=== PATIENT | male | born 1955 | race Caucasian/White ===

== ENCOUNTER 2024-02-05 19:14 | Observation (INO) ==
--- NOTE | 2024-02-05 19:43 | Emergency Department Note ---
Impression & Plan Asymptomatic hypertensive urgency, Elevated troponin ED Provider Note NAME: ELADIO FAROOQ AGE: 68 SEX: M : 1955 ARRIVES VIA: Walk-In INFORMANT: Patient, ED PROVIDER(S): Jason Jorgensen MD CHIEF COMPLAINT: High blood pressure MEDICAL DECISION MAKING: Patient presents due to concern for high blood pressure. IV was established and blood work was obtained. Patient EKG shows elevation in V2 but not in V3. The patient has no active chest pain. Patient with a white count that is normal with a normal H&H and platelet count. Kidney function is unremarkable. Troponin of 22. In light of this with abnormal EKG without prior comparison do believe the patient would benefit from inpatient treatment. Patient was ordered 1 nitro for blood pressure control. Patient also ordered full dose aspirin. Repeat blood pressure does appear to be improved. Patient still without any chest pain or shortness of breath. I did speak with the on-call hospitalist service Dr. Barrett and the patient was admitted to the medicine service. Discussion w/ other healthcare providers: Dr. Barrett inpatient medicine service Prior /Outside records reviewed: None Differential diagnosis: Benign hypertension, hypertensive emergency, hypertensive emergency/urgency, salt intake, pheochromocytoma, electrolyte abnormality, renal disease as well as other etiologies were entertained. Diagnostics, as interpreted by me: ECG: Sinus with first-degree AV block, rate of 62, prolonged IL normal QRS duration, normal axis, elevation in V2 without elevation in V3. No obvious reciprocal changes. Cardiac monitoring: An order was placed for continuous cardiac monitoring. The monitor shows a rate of 65 with sinus rhythm. Patient was placed on pulse oximetry Medical decision rules: Heart score Imaging studies: I informally interpreted the patient's chest x-ray does not show obvious pneumonia or pneumothorax with formal report to follow. HPI: Patient presents due to concern for elevated blood pressure. The patient states that he has had elevated blood pressure sometimes in the mornings. The patient states that he was seen recently and was noted to have elevated blood pressure and upon recheck was improved. The patient did have a recent change in his Coreg going from 6.25 twice daily to 12.5 twice daily. Patient also does take an ARB. Patient denies any increase in salt or processed foods in the diet. He denies any chest back or abdominal pain. No headache or shortness of breath. Patient denies any alcohol tobacco or drug use. No significant caffeine use. [place] he checked his blood pressure and noticed it to be greater than 200s. Typically at home sometimes will range anywhere from the 150s to the 160s but is never been this high. Patient denies any vision changes no numbness tingling or focal weakness. No slurred speech or facial droop. PAST MEDICAL HISTORY: See Below PAST SURGICAL HISTORY: See Below SOCIAL HISTORY: See Below HOME MEDICATIONS: See Below ALLERGIES: See Below VITALS: See Below PHYSICAL EXAMINATION: GENERAL: NAD, non-toxic. Wearing glasses. EYE EXAM: Normal conjunctiva. PERRL, no anisocoria and EOM's grossly intact w/o pain. OROPHARYNX: Moist mucus membranes, grossly normal dentition. NECK: Trachea midline, no stridor. Supple, no nuchal rigidity, no adenopathy, non-tender. No signs of meningismus. FROM of the neck with good chin to chest and neck extension. LUNGS: Clear to auscultation. Normal chest wall mechanics. HEART: NSR, no MRG. ABDOMEN: Abdomen soft, non-tender, no masses, no rebound or guarding. BACK: No CVA TTP. SKIN: No rashes and no bruising. UPPER EXTREMITIES: Upper extremities are grossly normal. LOWER EXTREMITIES: Grossly normal, no edema. NEURO EXAM: A&O x3, cranial nerves II-XII grossly intact, normal speech, moves all 4 extremities. Past Med/Surg History Problem List (Updated 02/07/24 @ 13:57 by Jason Jorgensen MD) Elevated troponin (Acute) Obstructive sleep apnea Asymptomatic hypertensive urgency (Acute) Social History Smoking Status: Never smoker Second Hand Exposure: No; Do You Dip or Chew Tobacco: No; Tobacco Cessation Education Requested by Patient: No Hx Alcohol Use: No Hx Substance Use: No Preferred Language: Spanish Communication Ability: Effective Materials Director Required: No Beliefs That Will Affect Care: None Current Living Situation: Spouse Other Information That Helps Us Care for You: No Feels Safe at Home: Yes Safety Concerns: Feels Safe At This Time Assistive Devices: None Allergies Allergies Allergy/AdvReac Type Severity Reaction Status Date / Time No Known Allergies Allergy Unverified 02/05/24 21:55 Home Meds Home Medications Medication Instructions Recorded Confirmed aspirin 81 mg chewable tablet 81 mg PO DAILY 02/05/24 02/05/24 olmesartan 40 mg tablet 40 mg PO DAILY 02/05/24 02/05/24 rosuvastatin 10 mg tablet 10 mg PO DAILY 02/05/24 02/05/24 Previous Rx's Medication Instructions Recorded amlodipine 10 mg tablet (Norvasc) 10 mg PO DAILY #30 tabs 02/06/24 carvedilol 12.5 mg tablet 6.25 mg (1/2 x 12.5 mg) PO BID #0 02/06/24 tabs Results & Data (ED) Vital Signs Vital Signs - 24 hr 02/05/24 19:25 02/05/24 19:55 02/05/24 20:00 Temperature 36.4 C L Temperature Source Temporal Artery Scan Pulse Rate 65 60 Pulse Rate [Apical] 59 L Pulse Rhythm Pulse Rhythm [Apical] Regular Pulse Strength [Apical] Normal Respiratory Rate 18 18 Respiratory Effort / Characteristics Non-Labored Non-Labored Spontaneous Respiratory Depth Normal Normal Respiratory Pattern Regular Blood Pressure 210/108 H Blood Pressure [Left Arm] 175/103 H Blood Pressure Mean 142 Blood Pressure Mean [Left Arm] 127 Blood Pressure Position [Left Arm] Sitting Pulse Oximetry 95 96 Oxygen Delivery Method Room Air Room Air Sepsis Recent Fever Within 48 Hours No Sepsis New/Unexplained Change in Mental Status No Sepsis Action Taken by Nursing No Action Required 02/05/24 20:00 02/05/24 22:00 02/05/24 23:00 Temperature Temperature Source Pulse Rate 59 L Pulse Rate [Apical] 55 L 57 L Pulse Rhythm Regular Pulse Rhythm [Apical] Regular Pulse Strength [Apical] Normal Respiratory Rate 18 16 20 Respiratory Effort / Characteristics Non-Labored Spontaneous Non-Labored Respiratory Depth Normal Normal Respiratory Pattern Regular Regular Blood Pressure Blood Pressure [Left Arm] 143/77 H 152/82 H Blood Pressure Mean Blood Pressure Mean [Left Arm] 99 105 Blood Pressure Position [Left Arm] Sitting Pulse Oximetry 96 96 96 Oxygen Delivery Method Room Air Room Air Room Air Sepsis Recent Fever Within 48 Hours Sepsis New/Unexplained Change in Mental Status Sepsis Action Taken by Nursing 02/05/24 23:30 02/05/24 23:51 02/06/24 00:00 Temperature Temperature Source Pulse Rate 58 L Pulse Rate [Apical] 58 L 56 L Pulse Rhythm Pulse Rhythm [Apical] Pulse Strength [Apical] Respiratory Rate 20 18 Respiratory Effort / Characteristics Non-Labored Non-Labored Respiratory Depth Normal Normal Respiratory Pattern Regular Regular Blood Pressure Blood Pressure [Left Arm] 149/87 H 160/106 H Blood Pressure Mean Blood Pressure Mean [Left Arm] 107 124 Blood Pressure Position [Left Arm] Pulse Oximetry 97 96 Oxygen Delivery Method Room Air Room Air Sepsis Recent Fever Within 48 Hours Sepsis New/Unexplained Change in Mental Status Sepsis Action Taken by Nursing 02/06/24 00:30 02/06/24 01:00 Temperature Temperature Source Pulse Rate Pulse Rate [Apical] 62 55 L Pulse Rhythm Pulse Rhythm [Apical] Pulse Strength [Apical] Respiratory Rate 20 18 Respiratory Effort / Characteristics Non-Labored Non-Labored Respiratory Depth Normal Normal Respiratory Pattern Regular Regular Blood Pressure Blood Pressure [Left Arm] 149/95 H 163/98 H Blood Pressure Mean Blood Pressure Mean [Left Arm] 113 119 Blood Pressure Position [Left Arm] Pulse Oximetry 98 95 Oxygen Delivery Method Room Air Room Air Sepsis Recent Fever Within 48 Hours Sepsis New/Unexplained Change in Mental Status Sepsis Action Taken by Long Term Medications Current Medication List: was personally reviewed by me Laboratory Data Attestation: I reviewed the patient's lab results. 02/05/24 19:37 02/05/24 19:37 Lab Results 02/05/24 02/05/24 Range/Units 19:37 22:33 WBC 7.58 (4.8-10.8) K/ul RBC 5.30 (4.70-6.10) M/uL Hgb 14.7 (14.0-18.0) g/dl Hct 44.1 (42.0-52.0) % MCV 83.2 (80.0-100.0) fL MCH 27.7 (25.0-34.0) pg MCHC 33.3 (32.0-36.0) g/dL RDW Std Deviation 38.5 (36.4-46.3) fL RDW Coeff of Sophie 12.8 (11.5-14.5) % Plt Count 240 (130-400) K/uL MPV 9.7 (9.4-12.4) fL Immature Gran % (Auto) 0.5 % Neut % (Auto) 51.8 % Lymph % (Auto) 34.2 % Lewis % (Auto) 7.3 % Eos % (Auto) 5.5 % Baso % (Auto) 0.7 % Neut # (Auto) 3.93 (1.40-6.50) K/uL Lymph # (Auto) 2.59 (1.20-3.40) K/uL Lewis # (Auto) 0.55 (0.11-0.59) K/uL Eos # (Auto) 0.42 (0.00-0.50) K/uL Baso # (Auto) 0.05 (0.00-0.20) K/uL Immature Gran # (Auto) 0.04 (0.01-0.20) K/uL Sodium 137 (136-145) mmol/L Potassium 3.9 (3.5-5.1) mmol/L Chloride 106 (98-107) mmol/L Carbon Dioxide 25 (21-32) mmol/L Anion Gap 6 (3-11) BUN 19 (6-23) mg/dl Creatinine 0.79 (0.6-1.4) mg/dl Est Cr Clr Drug Dosing 108.6 ml/min eGFR 96.77 BUN/Creatinine Ratio 24.1 H (10-20) Glucose 92 (70-99(Fasting)) mg/dl Calcium 9.3 (8.6-10.3) mg/dl Total Bilirubin 0.5 (0.2-1.0) mg/dl AST 19 (13-39) U/L ALT 24 (7-52) U/L Alkaline Phosphatase 56 (34-104) U/L Troponin I High Sens 22.6 H 20.8 H (0-20) pg/ml Total Protein 7.4 (6.0-8.3) gm/dl Albumin 4.3 (3.4-5.0) gm/dl Globulin 3.1 (2.5-4.0) gm/dl Albumin/Globulin Ratio 1.4 (0.9-2) Lipase 54 (11-82) U/L TSH 3.442 (0.300-4.500) uIu/ml Administered Medications Discontinued Medications Acetaminophen (Acetaminophen 500 Mg Tab) 1,000 mg PO NOW STA Stop: 02/05/24 21:17 Last Admin: 02/05/24 21:21 Dose: 1,000 mg Documented By: SNS Amlodipine Besylate (Amlodipine Besylate 5 Mg Tab) 5 mg PO NOW ONE Stop: 02/06/24 00:11 Last Admin: 02/06/24 00:56 Dose: 5 mg Documented By: LEANA Amlodipine Besylate (Amlodipine Besylate 5 Mg Tab) 10 mg PO DAILY DEE Stop: 03/07/24 07:44 Last Admin: 02/06/24 08:38 Dose: 10 mg Documented By: BRANDYN Aspirin (Aspirin Chew 324 Mg) 324 mg PO NOW STA Stop: 02/05/24 21:17 Last Admin: 02/05/24 21:22 Dose: 324 mg Documented By: EDILBERTO Aspirin (Aspirin 81 Mg Ectab) 81 mg PO DAILY DEE Stop: 03/07/24 08:59 Last Admin: 02/06/24 08:38 Dose: 81 mg Documented By: BRANDYN Carvedilol (Carvedilol 6.25 Mg Tab) 6.25 mg PO BID DEE Stop: 03/07/24 08:59 Last Admin: 02/06/24 08:38 Dose: 6.25 mg Documented By: BRANDYN Enoxaparin Sodium (Enoxaparin Inj 40 Mg/0.4 Ml Syr) 40 mg SQ QAM DEE Stop: 03/07/24 08:59 Last Admin: 02/06/24 08:39 Dose: 40 mg Documented By: BRANDYN Miscellaneous (Olmesartan 40 Mg (No Sub) - Order Awaiting Action) 1 each N/A QS [facility] Stop: 03/07/24 07:59 Last Admin: 02/06/24 08:39 Dose: Not Given Documented By: BRANDYN Nitroglycerin (Nitroglycerin Sl 0.4 Mg/Tab Tab) 0.4 mg SL NOW STA Stop: 02/05/24 21:17 Last Admin: 02/05/24 21:22 Dose: 0.4 mg Documented By: EDILBERTO Olmesartan (Olmesartan Medoxomil 40 Mg Tab (Pom)) 40 mg PO DAILY DEE Stop: 03/07/24 08:59 Last Admin: 02/06/24 11:04 Dose: 40 mg Documented By: BRANDYN Rosuvastatin Calcium (Rosuvastatin Calcium 10 Mg Tab) 10 mg PO DAILY DEE Stop: 03/07/24 08:59 Last Admin: 02/06/24 08:38 Dose: 10 mg Documented By: BRANDYN Imaging Data Radiologist's Impression: Chest X-Ray 02/05/24 19:29 Exam(s): XR CXR 1 VIEW EXAM: XR Chest, 1 View CLINICAL HISTORY: Chest pain, nonspecific. TECHNIQUE: Frontal view of the chest. COMPARISON: No relevant prior studies available. FINDINGS: Lungs: No consolidation. The pulmonary vasculature demonstrates no significant radiographic abnormality. Pleural space: No pneumothorax. No large pleural effusion. Heart: No cardiomegaly. Mediastinum: No significant abnormality identified. The trachea is midline. Bones/joints: Degenerative changes of the acromioclavicular joints bilaterally. Asymmetric widening of the right AC interval. No definite acute osseous abnormality. IMPRESSION: No focal consolidation or acute cardiopulmonary process identified. Electronically signed by: Vick Hermosillo MD 02/05/24 22:07 PM Discharge Plan Visit Data Chief Complaint: Hypertension Stated Complaint: HIGH BLOOD PRESSURE ED Provider: Jason Jorgensen Discharge Problem: Asymptomatic hypertensive urgency, Elevated troponin Patient Disposition: Admitted As Inpatient Discharge Instructions Interventions: ED Discharge Assessment Last Done: 02/06/24 01:28
[2024-02-05 20:02] LABS: Basophils # (auto) 0.05 K/uL (0.00-0.20); Basophils % (auto) 0.7 %; Eosinophils # (auto) 0.42 K/uL (0.00-0.50); Eosinophils % (auto) 5.5 %; Hematocrit (blood only) 44.1 % (42.0-52.0); Hemoglobin 14.7 g/dl (14.0-18.0); Immature Granulocytes # (auto) 0.04 K/uL (0.01-0.20); Immature Granulocytes % (auto) 0.5 %; Lymphocytes # (auto) 2.59 K/uL (1.20-3.40); Lymphocytes % (auto) 34.2 %; Mean Corpuscular Hemoglobin 27.7 pg (25.0-34.0); Mean Corpuscular Hgb Conc 33.3 g/dL (32.0-36.0); Mean Corpuscular Volume 83.2 fL (80.0-100.0); Mean Platelet Volume 9.7 fL (9.4-12.4); Monocytes # (auto) 0.55 K/uL (0.11-0.59); Monocytes % (auto) 7.3 %; Neutrophils # (auto) 3.93 K/uL (1.40-6.50); Neutrophils % (auto) 51.8 %; Platelet Count 240 K/uL (130-400); RDW Coefficient of Variation 12.8 % (11.5-14.5); RDW Standard Deviation 38.5 fL (36.4-46.3); White Blood Count 7.58 K/ul (4.8-10.8)
[2024-02-05 20:09] LABS: Albumin Globulin Ratio 1.4 (0.9-2); Albumin Level 4.3 gm/dl (3.4-5.0); BUN Creatinine Ratio 24.1 (10-20); Bilirubin,Total 0.5 mg/dl (0.2-1.0); Calcium 9.3 mg/dl (8.6-10.3); Creatinine Clr Calc Pharmacy 108.6 ml/min; Globulin 3.1 gm/dl (2.5-4.0); Potassium 3.9 mmol/L (3.5-5.1); Total Protein 7.4 gm/dl (6.0-8.3)
[2024-02-05 20:15] LABS: Troponin I High Sensitivity 22.6 pg/ml (0-20)
[2024-02-05] MEDS: ACETAMINOPHEN 500 MG TAB PO STA (21:21)
[2024-02-05] MEDS: ASPIRIN CHEW 324 MG PO STA (21:22)
[2024-02-05] MEDS: NITROGLYCERIN SL 0.4 MG/TAB TAB SL STA (21:22)
[2024-02-05 23:14] LABS: Troponin I High Sensitivity 20.8 pg/ml (0-20)
--- NOTE | 2024-02-06 00:10 | History & Physical Report ---
Date of Service February 06, 2024 Assessment & Plan (1) Asymptomatic hypertensive urgency: Plan: Troponin elevation secondary to above hyperlipidemia, on statin Rx ACOSTA on CPAP past tobacco abuse OBS PCU Add amlodipine to regimen Revert to previous Coreg dose of 6.25 mg p.o. twice daily given bradycardia and fatigue following recent dose increase. Continue ARB TTE re: troponin elevation Cardiology consult for hypertension as per patient request. DVT prophylaxis. Lovenox subcu Full code Patient requesting to be set up with local [facility] PCP services in [place] upon discharge. Text document was generated using [email or web address] voice recognition software. It may contain grammatical or spelling errors. Kindly contact undersigned for clarification of any documentation item in question. History of Present Illness Chief Complaint: High blood pressure Primary Care Provider: Ludwig Juan DO History obtained from patient and records. Medical history significant for hypertension, hyperlipidemia, ACOSTA on CPAP, past tobacco abuse. Patient has been trying to control blood pressure under guidance of PCP for the last 2 years. SBP at home 1 50-1 70s. Coreg recently increased from 6.25 mg p.o. twice a day to 12.5 mg p.o. twice a day last week. Started CPAP machine for ACOSTA last week. Patient feels easily tired since recent increase in Coreg home Rx. Patient was checking his blood pressure at the local [employer]. SBP noted to be 190s. Blood pressure never that high as per patient. Patient denies headache, chest pain, SOB. Denies dietary indiscretion or unusual stress. Or inordinate NSAID intake. 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 Allergies Allergy/AdvReac Type Severity Reaction Status Date / Time No Known Allergies Allergy Unverified 02/05/24 21:55 Home Medications Medication Instructions Recorded Confirmed Type aspirin 81 mg chewable tablet 81 mg PO DAILY 02/05/24 02/05/24 History carvedilol 12.5 mg tablet 12.5 mg PO BID 02/05/24 02/05/24 History olmesartan 40 mg tablet 40 mg PO DAILY 02/05/24 02/05/24 History rosuvastatin 10 mg tablet 10 mg PO DAILY 02/05/24 02/05/24 History Past Med/Surg History Problem List (Updated 02/06/24 @ 04:31 by Gian Barrett MD) Asymptomatic hypertensive urgency Social History Smoking Status: Never smoker Second Hand Exposure: No; Do You Dip or Chew Tobacco: No; Tobacco Cessation Education Requested by Patient: No Hx Alcohol Use: No Hx Substance Use: No Preferred Language: Palauan Communication Ability: Effective Senior Quality Analyst Required: No Beliefs That Will Affect Care: None Current Living Situation: Spouse Other Information That Helps Us Care for You: No Feels Safe at Home: Yes Safety Concerns: Feels Safe At This Time Assistive Devices: CPAP and Glasses Review of Systems Review of Systems: As per HPI, all other systems reviewed and negative Physical Exam Physical Exam: GENERAL: Comfortable, obese, pleasant, no respiratory distress SKIN: Normal color, warm HEENT: Alopecia, bespectacled, Jacobus palpebral conjunctivae, no ptosis, moist buccal mucosa NECK : Supple, no tenderness CHEST : CTA, no tenderness HEART : Bradycardic, no obvious murmurs ABDOMEN: Some distention, nontender EXTREMITIES : No LE swelling/tenderness, no other conspicuous deformities noted NEUROLOGIC : Coherent, no facial asymmetry, no other gross focality Results & Data Results & Data Vital Signs (Past 12 Hours) Vital Signs Temp Pulse Pulse Resp BP BP Pulse Ox 02/05/24 23:51 58 L 02/05/24 23:30 58 L 20 149/87 H 97 02/05/24 23:00 57 L 20 152/82 H 96 02/05/24 22:00 55 L 16 143/77 H 96 02/05/24 20:00 59 L 18 96 02/05/24 20:00 59 L 18 175/103 H 96 02/05/24 19:55 60 02/05/24 19:25 36.4 C L 65 18 210/108 H 95 O2 Del Method 02/05/24 23:51 02/05/24 23:30 Room Air 02/05/24 23:00 Room Air 02/05/24 22:00 Room Air 02/05/24 20:00 Room Air 02/05/24 20:00 Room Air 02/05/24 19:55 02/05/24 19:25 Room Air Laboratory Results Laboratory Results WBC 7.58 K/ul (4.8-10.8) 02/05/24 19:37 RBC 5.30 M/uL (4.70-6.10) 02/05/24 19:37 Hgb 14.7 g/dl (14.0-18.0) 02/05/24 19:37 Hct 44.1 % (42.0-52.0) 02/05/24 19:37 MCV 83.2 fL (80.0-100.0) 02/05/24 19:37 MCH 27.7 pg (25.0-34.0) 02/05/24 19:37 MCHC 33.3 g/dL (32.0-36.0) 02/05/24 19:37 RDW Std Deviation 38.5 fL (36.4-46.3) 02/05/24 19:37 RDW Coeff of Sophie 12.8 % (11.5-14.5) 02/05/24 19:37 Plt Count 240 K/uL (130-400) 02/05/24 19:37 MPV 9.7 fL (9.4-12.4) 02/05/24 19:37 Immature Gran % (Auto) 0.5 % 02/05/24 19:37 Neut % (Auto) 51.8 % 02/05/24 19:37 Lymph % (Auto) 34.2 % 02/05/24 19:37 [place] % (Auto) 7.3 % 02/05/24 19:37 Eos % (Auto) 5.5 % 02/05/24 19:37 Baso % (Auto) 0.7 % 02/05/24 19:37 Neut # (Auto) 3.93 K/uL (1.40-6.50) 02/05/24 19:37 Lymph # (Auto) 2.59 K/uL (1.20-3.40) 02/05/24 19:37 [place] # (Auto) 0.55 K/uL (0.11-0.59) 02/05/24 19:37 Eos # (Auto) 0.42 K/uL (0.00-0.50) 02/05/24 19:37 Baso # (Auto) 0.05 K/uL (0.00-0.20) 02/05/24 19:37 Immature Gran # (Auto) 0.04 K/uL (0.01-0.20) 02/05/24 19:37 Sodium 137 mmol/L (136-145) 02/05/24 19:37 Potassium 3.9 mmol/L (3.5-5.1) 02/05/24 19:37 Chloride 106 mmol/L (98-107) 02/05/24 19:37 Carbon Dioxide 25 mmol/L (21-32) 02/05/24 19:37 Anion Gap 6 (3-11) 02/05/24 19:37 BUN 19 mg/dl (6-23) 02/05/24 19:37 Creatinine 0.79 mg/dl (0.6-1.4) 02/05/24 19:37 Est Cr Clr Drug Dosing 108.6 ml/min 02/05/24 19:37 eGFR 96.77 02/05/24 19:37 BUN/Creatinine Ratio 24.1 (10-20) H 02/05/24 19:37 Glucose 92 mg/dl (70-99(Fasting)) 02/05/24 19:37 Calcium 9.3 mg/dl (8.6-10.3) 02/05/24 19:37 Total Bilirubin 0.5 mg/dl (0.2-1.0) 02/05/24 19:37 AST 19 U/L (13-39) 02/05/24 19:37 ALT 24 U/L (7-52) 02/05/24 19:37 Alkaline Phosphatase 56 U/L (34-104) 02/05/24 19:37 Troponin I High Sens 20.8 pg/ml (0-20) H 02/05/24 22:33 Total Protein 7.4 gm/dl (6.0-8.3) 02/05/24 19:37 Albumin 4.3 gm/dl (3.4-5.0) 02/05/24 19:37 Globulin 3.1 gm/dl (2.5-4.0) 02/05/24 19:37 Albumin/Globulin Ratio 1.4 (0.9-2) 02/05/24 19:37 Lipase 54 U/L (11-82) 02/05/24 19:37 Diagnostic Findings EKG as per my interpretation : Rate 60, LAD, LAFB, septal infarct, no ischemia
[2024-02-06] MEDS ORDERED: PROMETHAZINE 6.25 MG/50.25 ML BAG IV PRN (00:13)
[2024-02-06] MEDS ORDERED: ACETAMINOPHEN 325 MG TAB PO PRN (00:13)
[2024-02-06] MEDS ORDERED: LORazepam 0.5 MG TAB PO PRN (00:13)
[2024-02-06] MEDS: amLODIPine BESYLATE 5 MG TAB PO ONE (00:56)
[2024-02-06 04:54] LABS: Thyroid Stimulating Hormone 3.442 uIu/ml (0.300-4.500)
[2024-02-06] MEDS: ROSUVASTATIN CALCIUM 10 MG TAB PO SCH (08:38)
[2024-02-06] MEDS: carvediloL 6.25 MG TAB PO SCH (08:38)
[2024-02-06] MEDS: ASPIRIN 81 MG ECTAB PO SCH (08:38)
[2024-02-06] MEDS: amLODIPine BESYLATE 5 MG TAB PO SCH (08:38)
[2024-02-06] MEDS: ENOXAPARIN INJ 40 MG/0.4 ML SYR SQ SCH (08:39)
--- NOTE | 2024-02-06 08:55 | Cardiology Consultation ---
Date of Consultation February 06, 2024 Assessment & Plan (1) Asymptomatic hypertensive urgency: Plan Assessment: 68 year old male with known HTN and recent diagnosis treatment of ACOSTA followed by his PCP. Presented to the ED with asymptomatic hypertensive urgency with Systolic BP readings 190s-210 mmHg. Plan: -Patient with known history of HTN and ACOSTA, recently started CPAP 3 days ago. -No prior history of coronary disease, or family history of CAD. Does endorse long-standing family history of Strokes and suspected HTN. -Patient's PCP had recently increased his Coreg to 12.5mg BID, which created profound fatigue and lower Heart rates. Agree with reduction back to Coreg 6.25mg PO BID -Continue Olmesartan 40mg Daily -Agree with addition of Amlodipine 10mg daily. -Resting echocardiogram demonstrates normal LVEF and systolic function, moderate concentric LVH, grade I diastolic dysfunction, Mild AI. Also of note there is enlarged aortic root measurements of 4.1cm and enlargement of the ascending aorta of 4.5cm. -Recommend continued aggressive BP management. -Discussed a cardiac prudent diet with less than 2000mg Na intake daily. Continue to refrain from any tobacco use. Case has been discussed with Dr. Juan. Further recommendations regarding plan of care as per his assessment. I spent a total of 40 minutes on the date of service in preparation, delivery, documentation of the care provided to the patient excluding any time spent in the performance of separately billed services. PEACE Casanova [facility] Cardiology [facility] Supervising Physician Co-Signing Physician Notes I have reviewed the advance practitioner's documentation, and I agree with, and take responsibility for the plan of care. Patient discharged prior to examination. Continue medical management as noted above. He will require surveillance of aortic root and ascending aorta enlargement as well as consideration for genetic testing. Please schedule outpatient cardiology follow-up in 2 to 4 weeks. Lizandro Juan DO, [facility] History of Present Illness Reason for Consultation: Hypertensive urgency Requesting Physician: [facility] hospitalist Attending Physician: Skyler Lyle DO History of Present Illness HPI: Patient is a 68 year old male with PMHx significant for HTN, HLD, ACOSAT on CPAP and prior tobacco use that presented to the ER after obtaining an elevated BP readings while at [employer]. SBP noted to be in the 190's. patient denies any symptoms at that time, but after rechecking his BP with no improvement, he was prompted to present to the ER for further evaluation. Patient has a history of HTN and has been under treatment by his PCP for the past 1-2 years. He was recently tested for ACOSTA and started a CPAP machine 3 days ago. He states in the morning, his BP prior to medications is typically 160-170's systolic, and by late afternoon will be 140-150's systolic. He reports compliance on all medication therapies as prescribed by his PCP, but does endorse profuse fatigue since a recent increase in his home regimen of coreg approx 6 weeks ago. Denies very little BP response. 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 No dyspnea, pre-syncopal or syncopal feelings. He has recently started monitoring his salt intake, realizing how much salt is in the products he consumes. EKG on admission demonstrates SR with 1st degree AVB. Rate 62bpm High sensitivity troponin 22.6/20.8 Denies any family history of coronary disease, but does state that his maternal side has a strong history of strokes. His mother is 103 years old and doing well. Echocardiogram pending Allergies Allergy/AdvReac Type Severity Reaction Status Date / Time No Known Allergies Allergy Unverified 02/05/24 21:55 Home Medications Medication Instructions Recorded Confirmed Type aspirin 81 mg chewable tablet 81 mg PO DAILY 02/05/24 02/05/24 History olmesartan 40 mg tablet 40 mg PO DAILY 02/05/24 02/05/24 History rosuvastatin 10 mg tablet 10 mg PO DAILY 02/05/24 02/05/24 History amlodipine 10 mg tablet (Norvasc) 10 mg PO DAILY #30 tabs 02/06/24 Rx carvedilol 12.5 mg tablet 6.25 mg (1/2 x 12.5 mg) PO BID #0 02/06/24 02/05/24 Rx tabs Patient History Social History Smoking Status: Never smoker Second Hand Exposure: No; Do You Dip or Chew Tobacco: No; Tobacco Cessation Education Requested by Patient: No Hx Alcohol Use: No Hx Substance Use: No Preferred Language: Occitan Communication Ability: Effective 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 Required: No Beliefs That Will Affect Care: None Current Living Situation: Spouse Other Information That Helps Us Care for You: No Feels Safe at Home: Yes Safety Concerns: Feels Safe At This Time Assistive Devices: None Review of Systems Review of Systems: All systems reviewed & are unremarkable except as noted in HPI & below Physical Exam Constitutional: well developed and well nourished; no acute distress and not ill appearing Neck: normal visual inspection and trachea midline Respiratory: normal respiratory effort, lungs clear to auscultation Cardiovascular: Rate/Rhythm: regular rate and regular rhythm Heart Sounds: normal S1 and normal S2; no murmur Vessels: no JVD Skin: no rashes, warm and dry Psychiatric: A+Ox3, euthymic affect Results & Data Vital Signs (Past 12 Hours) Vital Signs Temp Pulse Pulse Resp BP Pulse Ox O2 Del Method 02/06/24 08:17 36.5 C 60 18 168/90 H 95 Room Air 02/06/24 07:26 53 L 02/06/24 02:50 58 L 02/06/24 02:48 36.4 C L 52 L 16 163/93 H 96 Room Air 02/06/24 01:00 55 L 18 163/98 H 95 Room Air 02/06/24 00:30 62 20 149/95 H 98 Room Air 02/06/24 00:00 56 L 18 160/106 H 96 Room Air 02/05/24 23:51 58 L 02/05/24 23:30 58 L 20 149/87 H 97 Room Air 02/05/24 23:00 57 L 20 152/82 H 96 Room Air 02/05/24 22:00 55 L 16 143/77 H 96 Room Air Laboratory Results Cardiac Enzymes 02/05/24 02/05/24 Range/Units 19:37 22:33 AST 19 (13-39) U/L Troponin I High Sens 22.6 H 20.8 H (0-20) pg/ml CBC 02/05/24 Range/Units 19:37 WBC 7.58 (4.8-10.8) K/ul RBC 5.30 (4.70-6.10) M/uL Hgb 14.7 (14.0-18.0) g/dl Hct 44.1 (42.0-52.0) % Plt Count 240 (130-400) K/uL Neut # (Auto) 3.93 (1.40-6.50) K/uL Lymph # (Auto) 2.59 (1.20-3.40) K/uL Colbert # (Auto) 0.55 (0.11-0.59) K/uL Eos # (Auto) 0.42 (0.00-0.50) K/uL Baso # (Auto) 0.05 (0.00-0.20) K/uL Comprehensive Metabolic Panel 02/05/24 Range/Units 19:37 Sodium 137 (136-145) mmol/L Potassium 3.9 (3.5-5.1) mmol/L Chloride 106 (98-107) mmol/L Carbon Dioxide 25 (21-32) mmol/L BUN 19 (6-23) mg/dl Creatinine 0.79 (0.6-1.4) mg/dl Glucose 92 (70-99(Fasting)) mg/dl Calcium 9.3 (8.6-10.3) mg/dl AST 19 (13-39) U/L ALT 24 (7-52) U/L Alkaline Phosphatase 56 (34-104) U/L Total Protein 7.4 (6.0-8.3) gm/dl Albumin 4.3 (3.4-5.0) gm/dl Intake and Output 02/05/24 02/06/24 02/06/24 22:59 06:59 14:59 Other: Weight 105 kg 104.3 kg Weight Measurement Method Chair Scale Standing Scale
[2024-02-06] MEDS ORDERED: LOSARTAN POTASSIUM 50 MG TAB PO SCH (09:00)
[2024-02-06] MEDS: OLMESARTAN MEDOXOMIL 40 MG PO SCH (11:04)
[2024-02-06 11:11] VITALS: BP 142/82; PULSE 61; RESP 17; TEMP 97.5; O2SAT 94
--- NOTE | 2024-02-06 12:54 | Discharge Summary ---
Discharge Summary Date of Service February 06, 2024 Principal Dx & Hospital Course #1 = Principal Diagnosis (1) Asymptomatic hypertensive urgency: (2) Obstructive sleep apnea: Plan Patient presented to the emergency room with reports of an elevated blood pressure and when testing at outside facility. Patient had no specific symptoms but was concerned about how it his blood pressure was. Evaluation in the emergency room was negative for any type of endorgan damage but due to his elevated blood pressure was referred for further evaluation. Patient was observed in the hospital. Troponins were trended and were unremarkable. There is no significant arrhythmias on telemetry. There was no significant EKG changes. He was started on amlodipine for improved blood pressure control. His Coreg dose was also decreased due to the fact that he was having some significant bradycardia and fatigue associated with the increased dose recently. The following morning the amlodipine dose was increased again. This was significantly effective. Echocardiogram was performed ejection fraction was in normal range. Did show some slightly dilated aortic root. Patient otherwise was asymptomatic. He was evaluated by cardiology here in the hospital. Agreed with the addition of the amlodipine and the decrease in his Coreg dose. Also encouraged to continue using his CPAP. Highly suspect that his blood pressure will be much easier to control once he is on the CPAP consistently for 4 to 6 weeks. He just received his CPAP within the past week or so. He will follow-up with with his PCP for additional monitoring and control of his blood pressure. Notes For Next Care Provider Continue to encourage CPAP wear May need additional titration of antihypertensive medications Medication Changes From Visit Amlodipine added for blood pressure control Coreg dose decreased due to bradycardia Admission HPI Per Admitting Provider History obtained from patient and records. Medical history significant for hypertension, hyperlipidemia, ACOSTA on CPAP, past tobacco abuse. Patient has been trying to control blood pressure under guidance of PCP for the last 2 years. SBP at home 1 50-1 70s. Coreg recently increased from 6.25 mg p.o. twice a day to 12.5 mg p.o. twice a day last week. Started CPAP machine for ACOSTA last week. Patient feels easily tired since recent increase in Coreg home Rx. Patient was checking his blood pressure at the local [employer]. SBP noted to be 190s. Blood pressure never that high as per patient. Patient denies headache, chest pain, SOB. Denies dietary indiscretion or unusual stress. Or inordinate NSAID intake. 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 Lungs: Clear to auscultation, decreased, no wheezes rales or rhonchi CV: S1-S2, regular Abdomen: Soft, nontender, nondistended Extremities: No significant edema Neuro: No focal deficits Psych: Cooperative, normal mood Updated Medication List Medication Instructions Recorded Confirmed Type aspirin 81 mg chewable tablet 81 mg PO DAILY 02/05/24 02/05/24 History carvedilol 12.5 mg tablet 12.5 mg PO BID 02/05/24 02/05/24 History olmesartan 40 mg tablet 40 mg PO DAILY 02/05/24 02/05/24 History rosuvastatin 10 mg tablet 10 mg PO DAILY 02/05/24 02/05/24 History amlodipine 10 mg tablet (Norvasc) 10 mg PO DAILY #30 tabs 02/06/24 Rx Hospital Stay Data Consultations 02/05/24 21:41 ED Decision to Admit Stat 02/06/24 03:29 Consult Cardiology Routine Diagnostic Imagining Performed Reviewed imaging, laboratory and diagnostic studies. Pertinent findings as below. Troponins reviewed, minimally elevated due to hypertension CBC, electrolytes and renal function within normal ranges Echocardiogram showed ejection fraction 55 to 60%, some mild left ventricular hypertrophy mildly enlarged aortic root and aorta. I refer you to the full report for details. Pending Results Patient Have Any Pending Studies at Discharge: No Discharge Instructions Given to Patient (Per Discharging Provider) Continue to wear CPAP nightly Okay to exercise as tolerated Follow-up with your PCP for further adjustments in blood pressure medications if needed Total Time Total Time Spent Total Time Spent (In Minutes): 32
--- NOTE | 2024-02-06 14:19 | Electrocardiogram Report ---
Test Reason : Blood Pressure : */* mmHG Vent. Rate : 62 BPM Atrial Rate : 62 BPM P-R Int : 210 ms QRS Dur : 98 ms QT Int : 438 ms P-R-T Axes : 44 9 61 degrees QTcB Int : 444 ms Sinus rhythm with 1st degree A-V block Possible Left atrial enlargement Septal infarct , age undetermined Abnormal ECG No previous ECGs available Confirmed by Manuel Contreras ([id number]) on 02/06/2024 2:19:32 PM Referred By: Confirmed By: Manuel Contreras
--- NOTE | 2024-02-06 17:02 | XRay Report ---
Exam(s): XR CXR 1 VIEW EXAM: XR Chest, 1 View CLINICAL HISTORY: Chest pain, nonspecific. TECHNIQUE: Frontal view of the chest. COMPARISON: No relevant prior studies available. FINDINGS: Lungs: No consolidation. The pulmonary vasculature demonstrates no significant radiographic abnormality. Pleural space: No pneumothorax. No large pleural effusion. Heart: No cardiomegaly. Mediastinum: No significant abnormality identified. The trachea is midline. Bones/joints: Degenerative changes of the acromioclavicular joints bilaterally. Asymmetric widening of the right AC interval. No definite acute osseous abnormality. IMPRESSION: No focal consolidation or acute cardiopulmonary process identified. Electronically signed by: Vick Hermosillo MD 02/05/24 22:07 PM
[2024-02-06] MEDS ORDERED: amLODIPine BESYLATE 5 MG TAB PO SCH (21:00)
== END 2024-02-06 13:26 | disposition home or self-care (01) ==
LOC: 4W 19:14 → ED 19:14 → 4W 02-06 01:28